=== PATIENT | male | born 1975 | race Caucasian/White ===

== ENCOUNTER 2022-09-01 20:24 | Emergency (ER) | payer BC ==
[2022-09-01] MEDS ORDERED: Mupirocin Oint 22 GM Tube TOP ONE (21:32)
== END 2022-09-01 21:45 | disposition home or self-care (01) ==
LOC: MW.ED 20:24
DX: L03.032 Cellulitis of left toe (principal); J45.909 Unspecified asthma, uncomplicated; Z88.1 Allergy status to other antibiotic agents; Z88.8 Allergy status to other drugs, medicaments and biological substances
CPT/HCPCS: 10060; 99283; A9270

== ENCOUNTER 2022-12-27 09:39 | Day surgery (SDC) | payer BC ==
[~2022-12-27 09:39] MED LIST: Lactated Ringers 1,000 ML IV SCH; fentaNYL 100 MCG/2 ML SDV ONE; propofoL 50 ML ONE
[2022-12-27] MEDS ORDERED: Propofol 200 MG/20 ML SDV ONE (10:00)
== END 2022-12-27 13:05 | disposition home or self-care (01) ==
LOC: MW.SDS 09:39
PROVIDERS: ATTEND Surgery
DX: Z12.11 Encounter for screening for malignant neoplasm of colon (principal); K57.30 Diverticulosis of large intestine without perforation or abscess without bleeding; K64.8 Other hemorrhoids; J45.909 Unspecified asthma, uncomplicated; F40.243 Fear of flying; K21.9 Gastro-esophageal reflux disease without esophagitis; K42.9 Umbilical hernia without obstruction or gangrene; G62.9 Polyneuropathy, unspecified; E66.3 Overweight; Z80.0 Family history of malignant neoplasm of digestive organs; Z88.1 Allergy status to other antibiotic agents; Z88.8 Allergy status to other drugs, medicaments and biological substances; Z79.899 Other long term (current) drug therapy; Z68.29 Body mass index [BMI] 29.0-29.9, adult
CPT/HCPCS: 45378; J2704; J3010; J7120

== ENCOUNTER → 2023-02-19 | Day surgery (SDC) | payer BC ==
[~2023-02-19] MED LIST changes: +Acetaminophen 1,000 MG in Premix Bag 1 BAG IV SCH; +Albuterol 0.083% 2.5 MG/3 ML Neb Soln NEB PRN; +Bupivacaine 0.25% 10 ML SDV ONE; +Bupivacaine 0.5% 30 ML SDV ONE; +Dexmedetomidine 200 MCG/2 ML SDV ONE; +HYDROmorphone 1 MG/ML Syringe IVPUSH PRN; +Ketorolac 30 MG/ML SDV ONE; +Lidocaine 2% 5 ML SDV ONE; +Magnesium Sulfate (4.06 MEQ/ML) 5 GM/10 ML SDV ONE; +Metoclopramide 10 MG/2 ML SDV IVPUSH PRN; +Metoclopramide 10 MG/2 ML SDV ONE; +Midazolam 1 MG/ML 2 ML SDV ONE; +Morphine 10 MG/ML SDV ONE; +Morphine 2 MG/ML SYRINGE IVPUSH PRN; +Naloxone 0.4 MG/ML SDV IVPUSH PRN; +Ondansetron 4 MG/2 ML SDV IVPUSH PRN; +Ondansetron 4 MG/2 ML SDV ONE; +Pregabalin 75 MG Cap PO SCH; +Rocuronium Bromide 50 MG/5 ML Syringe ONE; +Ropivacaine 0.5% 5 MG/ML 30 ML SDV ONE; +Scopolamine 1.5 MG Transdermal Patch ONE; +Sugammadex Sodium 200 MG/2 ML VIAL ONE; +ceFAZolin 2 GM Vial ONE; +ceFAZolin 2 GM in Sodium Chloride 0.9% 50 ML IV ONE; +cefOXitin 1 GM Vial ONE; +droPERidol 5 MG/2 ML SDV IVPUSH PRN; +fentaNYL 50 MCG/ML SDV IVPUSH PRN; +propofoL 0 ML ONE; -propofoL 50 ML ONE
== END ==
LOC: MW.SDS 09:59
PROVIDERS: ATTEND Surgery
DX: K42.9 Umbilical hernia without obstruction or gangrene (principal); Z53.9 Procedure and treatment not carried out, unspecified reason; J45.909 Unspecified asthma, uncomplicated; K21.9 Gastro-esophageal reflux disease without esophagitis; Z88.1 Allergy status to other antibiotic agents; Z88.8 Allergy status to other drugs, medicaments and biological substances; G62.9 Polyneuropathy, unspecified; F41.9 Anxiety disorder, unspecified; Z79.899 Other long term (current) drug therapy
CPT/HCPCS: A9270-GY; J0131; J0690; J0694; J1885; J2250; J2270; J2405; J2704; J2765; J2795; J3010; J3475; J3490; J7120